=== PATIENT | female | born 1965 | race Caucasian/White ===

== ENCOUNTER 2016-04-16 12:37 | Emergency (ER) | payer MEDICAID ==
[~2016-04-16] VITALS: Ht 165.1 cm; Wt 78.1 kg
[2016-04-16 12:51] VITALS: BP 102/72
== END 2016-04-16 21:30 | disposition left against medical advice (07) ==
LOC: ER 12:42
DX: R10.9 Unspecified abdominal pain (principal); Z53.21 Procedure and treatment not carried out due to patient leaving prior to being seen by health care provider

== ENCOUNTER 2016-04-18 09:20 | Inpatient (IN) | payer MEDICAID ==
[~2016-04-18] VITALS: Ht 165.1 cm; Wt 4.0 kg
[2016-04-18 10:33] LABS: Basophils # (auto) 0 uL; Basophils % (auto) 0.7 % (0.0-2.0); Eosinophils # (auto) 0 uL; Eosinophils % (auto) 1.3 % (0.0-7.0); Hematocrit 35.6 % (36.0-46.0); Hemoglobin 11.6 g/dL (12.2-16.2); Lymphocytes # (auto) 1.1 uL; Lymphocytes % (auto) 31.9 % (10.0-50.0); Mean Corpuscular Hemoglobin 27.6 pg (28.0-32.0); Mean Corpuscular Hgb Conc. 32.5 g/dL (32.0-36.0); Mean Corpuscular Volume 84.8 fL (80.0-100.0); Mean Platelet Volume 6.4 fL (7.4-10.4); Monocytes # (auto) 0.3 uL; Monocytes % (auto) 9.7 % (0.0-12.0); Neutrophils % (auto) 56.4 % (37.0-80.0); Platelet Count (auto) 234 10^3/uL (140-450); Red Cell Distribution Width 18.9 % (11.6-16.0); White Blood Cell 3.6 10^3/uL (4.4-10.8)
[2016-04-18 10:51] LABS: Albumin 2.8 g/dL (3.4-5.0); BUN/Creatinine Ratio 23.9; Bilirubin, Total 1.1 mg/dL (0.2-1.0); Calcium 9.1 mg/dL (8.5-10.1); Magnesium 2.2 mg/dL (1.6-2.6); Potassium 4.1 mmol/L (3.5-5.1); Total Protein 9.2 g/dL (6.4-8.2)
[2016-04-18] MEDS ORDERED: HYDROcodone-ACET 10/325MG TAB ONE (11:06)
[2016-04-18] MEDS ORDERED: THIAMINE HCL 100 MG/ML 2ML VIAL IV ONE (11:30)
[2016-04-18] MEDS ORDERED: MORPHINE SULFATE 4 MG/ML SYRG IV PRN (11:30)
[2016-04-18] MEDS ORDERED: PROMETHAZINE HCL 25 MG/ML 1ML IV PRN (11:30)
[2016-04-18] MEDS ORDERED: MORPHINE SULF INJ 2 MG/ML SYRINGE 1ML IV PRN (11:30)
[2016-04-18] MEDS ORDERED: ALBUTEROL SULF 2.5 MG/0.5ML(0.5%) NEB SOLN NEB PRN (11:30)
[2016-04-18] MEDS ORDERED: TEMAZEPAM 15 MG CAP PO PRN (11:30)
[2016-04-18] MEDS ORDERED: NITROGLYCERIN 0.4 MG SL TAB SL PRN (11:30)
[2016-04-18] MEDS: FAMOTIDINE 20 MG TAB PO SCH ×2 (11:45→22:42)
[2016-04-18 11:52] LABS: Amylase 73 U/L (25-115)
[2016-04-18 13:15] LABS: INR 1.1 (0.9-1.15); Prothrombin Time 11.3 sec (9.37-12.3)
[2016-04-18] MEDS: ALBUTEROL SULF 2.5 MG/0.5ML(0.5%) NEB SOLN NEB SCH ×2 (13:50→18:00)
[2016-04-18] MEDS ORDERED: ALBUMIN 25% 100 ML IV ONE ×4 (14:43→16:15)
[2016-04-18] MEDS: LORazepam 0.5 MG TAB PO PRN (16:26)
[2016-04-18 16:59] VITALS: BP 93/62
[2016-04-18 22:00] VITALS: BP 89/66
[2016-04-18 22:32] VITALS: BP 93/62
[2016-04-18] MEDS: MORPHINE SULF INJ 2 MG/ML SYRINGE 1ML IV PRN (22:47)
[2016-04-19] MEDS: ALBUTEROL SULF 2.5 MG/0.5ML(0.5%) NEB SOLN NEB SCH ×6 (00:02→23:10)
[2016-04-19] MEDS: LORazepam 0.5 MG TAB PO PRN (03:16)
[2016-04-19 04:30] VITALS: BP 79/56
[2016-04-19 06:16] LABS: Basophils # (auto) 0 uL; Basophils % (auto) 0.5 % (0.0-2.0); Eosinophils # (auto) 0.1 uL; Eosinophils % (auto) 1.7 % (0.0-7.0); Hematocrit 34.3 % (36.0-46.0); Lymphocytes # (auto) 1.3 uL; Lymphocytes % (auto) 30.5 % (10.0-50.0); Mean Corpuscular Hemoglobin 27.5 pg (28.0-32.0); Mean Corpuscular Volume 85.8 fL (80.0-100.0); Mean Platelet Volume 6.4 fL (7.4-10.4); Monocytes # (auto) 0.4 uL; Monocytes % (auto) 9.7 % (0.0-12.0); Neutrophils # (auto) 2.4 uL; Neutrophils % (auto) 57.6 % (37.0-80.0); Platelet Count (auto) 214 10^3/uL (140-450); White Blood Cell 4.1 10^3/uL (4.4-10.8)
[2016-04-19 06:39] LABS: Albumin 2.7 g/dL (3.4-5.0); BUN/Creatinine Ratio 22.9; Bilirubin, Total 1.1 mg/dL (0.2-1.0); Calcium 8.5 mg/dL (8.5-10.1); Potassium 4.1 mmol/L (3.5-5.1); Total Protein 7.3 g/dL (6.4-8.2)
[2016-04-19 09:10] VITALS: BP 90/54
[2016-04-19] MEDS: THIAMINE HCL 100 MG/ML 2ML VIAL IV SCH (10:11)
[2016-04-19] MEDS: FAMOTIDINE 20 MG TAB PO SCH ×2 (10:11→21:49)
[2016-04-19] MEDS: MORPHINE SULF INJ 2 MG/ML SYRINGE 1ML IV PRN (12:56)
[2016-04-19 13:10] VITALS: BP 83/49
[2016-04-19 16:50] VITALS: BP 83/56
[2016-04-19 21:27] VITALS: BP 92/58
[2016-04-19] MEDS: ALBUMIN 25% 100 ML IV SCH (21:46)
[2016-04-19] MEDS ORDERED: ZOLPIDEM TARTRATE 5 MG TAB PO ONE (22:00)
[2016-04-20 05:27] VITALS: BP 86/59
[2016-04-20] MEDS: ALBUMIN 25% 100 ML IV SCH ×2 (05:44→14:32)
[2016-04-20] MEDS: ALBUTEROL SULF 2.5 MG/0.5ML(0.5%) NEB SOLN NEB SCH ×2 (06:47→11:45)
[2016-04-20] MEDS: MORPHINE SULF INJ 2 MG/ML SYRINGE 1ML IV PRN ×3 (06:49→17:31)
[2016-04-20 08:20] VITALS: BP 89/58
[2016-04-20] MEDS: THIAMINE HCL 100 MG/ML 2ML VIAL IV SCH (11:51)
[2016-04-20] MEDS: FAMOTIDINE 20 MG TAB PO SCH (11:51)
[2016-04-20 13:00] VITALS: BP 86/59
[2016-04-20 17:40] VITALS: BP 90/63
[2016-04-20] MEDS ORDERED: TEMAZEPAM 15 MG CAP PO PRN (22:00)
== END 2016-04-20 18:50 | disposition home or self-care (01) | DRG 280 ==
LOC: ER 09:21 → TELE 09:22 → TELE-E-ADS 12:33 → TELE-EAST 14:41
PROVIDERS: ADMIT Internal Medicine; ATTEND Internal Medicine
PROC: 0W9G3ZZ Drainage of Peritoneal Cavity, Percutaneous Approach (ICD-10-PCS; principal; 2016-04-18)
DX: K70.31 Alcoholic cirrhosis of liver with ascites (principal); J44.9 Chronic obstructive pulmonary disease, unspecified; F17.210 Nicotine dependence, cigarettes, uncomplicated; N18.9 Chronic kidney disease, unspecified; Z88.0 Allergy status to penicillin; Z95.2 Presence of prosthetic heart valve
CPT/HCPCS: 36415; 71020; 76700; 76942; 80053; 82140; 82150; 83690; 83735; 84484; 85025; 85049; 85610; 85730; 86141; 87081; 93005; 94640; 94761; 96365; 96368; 96375

== ENCOUNTER 2016-06-10 14:17 | Inpatient (IN) | payer MEDICAID ==
[~2016-06-10] VITALS: Ht 162.6 cm; Wt 88.3 kg
[2016-06-10 14:56] LABS: Basophils # (auto) 0 uL; Basophils % (auto) 0.6 % (0.0-2.0); DEFINITIVE VIEW TRANSMISSION; Eosinophils # (auto) 0 uL; Eosinophils % (auto) 0.9 % (0.0-7.0); Hematocrit 34.4 % (36.0-46.0); Hemoglobin 11.3 g/dL (12.2-16.2); Lymphocytes % (auto) 20.4 % (10.0-50.0); Mean Corpuscular Hemoglobin 27.5 pg (28.0-32.0); Mean Corpuscular Hgb Conc. 32.7 g/dL (32.0-36.0); Mean Platelet Volume 6.3 fL (7.4-10.4); Monocytes # (auto) 0.4 uL; Monocytes % (auto) 7.7 % (0.0-12.0); Neutrophils # (auto) 3.5 uL; Neutrophils % (auto) 70.4 % (37.0-80.0); Platelet Count (auto) 311 10^3/uL (140-450); Red Cell Distribution Width 19.2 % (11.6-16.0)
[2016-06-10 15:13] LABS: Anion Gap 10 (5-15); Aspartate Aminotransferase 34 U/L (15-37); BUN/Creatinine Ratio 19.4; Blood Urea Nitrogen 35 mg/dL (7-18); Calcium 9.2 mg/dL (8.5-10.1); Carbon Dioxide 22 mmol/L (21-32); Chloride 99 mmol/L (98-107); GFR African American 38 mL/min; GFR Non-African American 31 mL/min; Glucose 96 mg/dL (74-106); Magnesium 2.6 mg/dL (1.6-2.6); Potassium 4.2 mmol/L (3.5-5.1); Sodium 131 mmol/L (136-145)
[2016-06-10 15:18] LABS: Alkaline Phosphatase 137 U/L (45-117); Bilirubin, Total 1.2 mg/dL (0.2-1.0); Total Protein 10.1 g/dL (6.4-8.2)
[2016-06-10] MEDS ORDERED: methylPREDNISolone SOD SUCC 125 MG/2 ML VL IV ONE (16:45)
[2016-06-10] MEDS ORDERED: FUROSEMIDE 40 MG/4 ML VIAL IV ONE (16:45)
[2016-06-10] MEDS ORDERED: IPRATROPIUM BROM 0.5 MG/2.5ML INH SOL NEB ONE (16:45)
[2016-06-10] MEDS ORDERED: ALBUTEROL SULF 2.5 MG/0.5ML(0.5%) NEB SOLN NEB ONE (16:45)
[2016-06-10] MEDS ORDERED: SODIUM CHLORIDE 0.9% 1,000 ML IV SCH (17:01)
[2016-06-10] MEDS ORDERED: TEMAZEPAM 15 MG CAP PO PRN (17:15)
[2016-06-10] MEDS ORDERED: PANTOPRAZOLE 40 MG TAB PO ONE (17:15)
[2016-06-10] MEDS ORDERED: LORazepam 0.5 MG TAB PO PRN (17:15)
[2016-06-10] MEDS ORDERED: ACETAMINOPHEN 500 MG TAB PO PRN (17:15)
[2016-06-10] MEDS ORDERED: NITROGLYCERIN 0.4 MG SL TAB SL PRN (17:15)
[2016-06-10] MEDS ORDERED: MORPHINE SULF INJ 2 MG/ML SYRINGE 1ML IV PRN (17:15)
[2016-06-10] MEDS ORDERED: OSELTAMIVIR 30 MG CAP PO ONE (17:15)
[2016-06-10] MEDS ORDERED: AZITHROMYCIN 500MG/D5W 250ML 250 ML IV ONE (17:15)
[2016-06-10] MEDS ORDERED: ALBUTEROL SULF 2.5 MG/0.5ML(0.5%) NEB SOLN NEB PRN (17:15)
[2016-06-10] MEDS ORDERED: PROMETHAZINE HCL 25 MG/ML 1ML IV PRN (17:15)
[2016-06-10] MEDS ORDERED: ENOXAPARIN SOD 40 MG/0.4 ML SYRINGE SC ONE (17:15)
[2016-06-10] MEDS ORDERED: LACTULOSE 20Gm/30ML SOLN PO PRN (17:15)
[2016-06-10 17:33] LABS: INR 1.11 (0.9-1.15); Prothrombin Time 11.4 sec (9.37-12.3)
[2016-06-10] MEDS: IPRATROPIUM BROM 0.5 MG/2.5ML INH SOL NEB SCH (18:00)
[2016-06-10] MEDS: ALBUTEROL SULF 2.5 MG/0.5ML(0.5%) NEB SOLN NEB SCH (18:00)
[2016-06-10] MEDS ORDERED: FUROSEMIDE 40 MG/4 ML VIAL IV SCH (18:35)
[2016-06-10] MEDS: SPIRONOLACTONE 25 MG TAB PO SCH (18:35)
[2016-06-10] MEDS: methylPREDNISolone SOD SUCC 40 MG/ML VL IV SCH (18:51)
[2016-06-10] MEDS: OSELTAMIVIR 30 MG CAP PO SCH (18:52)
[2016-06-10] MEDS ORDERED: SPIR50TA23 PO (19:30)
[2016-06-10] MEDS ORDERED: PROP60CA8 PO (19:33)
[2016-06-10] MEDS ORDERED: FURO40TA4 PO (19:34)
[2016-06-10] MEDS ORDERED: FOLITAB14 PO (19:38)
[2016-06-10] MEDS ORDERED: BECL0.07 INH (19:38)
[2016-06-10] MEDS ORDERED: [UNRECOGNIZED DRUG - CODE] PO (19:38)
[2016-06-10 20:20] VITALS: BP 98/72
[2016-06-10 21:00] VITALS: BP 88/63
[2016-06-10 22:00] VITALS: BP 98/72
[2016-06-10] MEDS ORDERED: OSELTAMIVIR 75 MG CAP PO SCH (22:00)
[2016-06-10] MEDS: METOPROLOL TARTRATE 25 MG TAB PO SCH (22:30)
[2016-06-11] MEDS: methylPREDNISolone SOD SUCC 40 MG/ML VL IV SCH ×3 (00:06→16:50)
[2016-06-11 05:00] VITALS: BP 94/63
[2016-06-11] MEDS: OSELTAMIVIR 30 MG CAP PO SCH (05:48)
[2016-06-11] MEDS: FUROSEMIDE 40 MG/4 ML VIAL IV SCH ×2 (05:51→16:51)
[2016-06-11] MEDS: SPIRONOLACTONE 25 MG TAB PO SCH ×2 (05:59→16:51)
[2016-06-11 06:03] LABS: Basophils # (auto) 0 uL; Basophils % (auto) 0.3 % (0.0-2.0); DEFINITIVE VIEW TRANSMISSION; Eosinophils # (auto) 0 uL; Hematocrit 32.5 % (36.0-46.0); Hemoglobin 10.6 g/dL (12.2-16.2); Lymphocytes # (auto) 0.5 uL; Lymphocytes % (auto) 10.6 % (10.0-50.0); Mean Corpuscular Hemoglobin 27.2 pg (28.0-32.0); Mean Corpuscular Hgb Conc. 32.8 g/dL (32.0-36.0); Mean Corpuscular Volume 82.9 fL (80.0-100.0); Mean Platelet Volume 6.7 fL (7.4-10.4); Monocytes # (auto) 0.1 uL; Monocytes % (auto) 1.7 % (0.0-12.0); Neutrophils # (auto) 3.7 uL; Neutrophils % (auto) 87.4 % (37.0-80.0); Platelet Count (auto) 249 10^3/uL (140-450); Red Cell Distribution Width 19.2 % (11.6-16.0); White Blood Cell 4.3 10^3/uL (4.4-10.8)
[2016-06-11 06:26] LABS: Potassium 4.3 mmol/L (3.5-5.1)
[2016-06-11 06:33] LABS: Albumin 2.7 g/dL (3.4-5.0); BUN/Creatinine Ratio 22.2; Bilirubin, Total 0.9 mg/dL (0.2-1.0); Calcium 8.7 mg/dL (8.5-10.1); Total Protein 9.3 g/dL (6.4-8.2)
[2016-06-11] MEDS: IPRATROPIUM BROM 0.5 MG/2.5ML INH SOL NEB SCH ×4 (06:56→19:30)
[2016-06-11] MEDS: ALBUTEROL SULF 2.5 MG/0.5ML(0.5%) NEB SOLN NEB SCH ×4 (06:56→19:30)
[2016-06-11 07:15] LABS: B-Type Natriuretic Peptide 235.21 pg/mL (0-100)
[2016-06-11 07:30] VITALS: BP 98/72
[2016-06-11 09:08] VITALS: BP 111/70
[2016-06-11 09:14] LABS: Urine Bilirubin Negative (Negative); Urine Blood TRACE /uL (Negative); Urine Color Yellow (Yellow); Urine Ketone Negative (Negative); Urine Nitrite Negative (Negative); Urine RBC 1 /hpf (0 - 4); Urine Squamous Epithelial Cell FEW /hpf (<5); Urine Urobilinogen Normal (Negative)
[2016-06-11 09:15] LABS: Urine Glucose 2+ mg/dL (Normal)
[2016-06-11] MEDS: PANTOPRAZOLE 40 MG TAB PO SCH (09:31)
[2016-06-11] MEDS: ENOXAPARIN SOD 40 MG/0.4 ML SYRINGE SC SCH (09:32)
[2016-06-11] MEDS: MORPHINE SULF INJ 2 MG/ML SYRINGE 1ML IV PRN ×2 (09:32→21:18)
[2016-06-11] MEDS: METOPROLOL TARTRATE 25 MG TAB PO SCH ×2 (09:34→21:28)
[2016-06-11] MEDS: NICOTINE 21MG/24 HR TOPICAL PATCH TD SCH (10:00)
[2016-06-11] MEDS: AZITHROMYCIN 500MG/D5W 250ML 250 ML IV SCH (10:48)
[2016-06-11 13:00] VITALS: BP 115/76
[2016-06-11 17:16] VITALS: BP 115/80
[2016-06-11 22:00] VITALS: BP 118/82
[2016-06-12] VITALS (7 sets, daily range): BP systolic 86–121; BP diastolic 59–87
[2016-06-12] MEDS: ALBUTEROL SULF 2.5 MG/0.5ML(0.5%) NEB SOLN NEB SCH ×4 (00:19→18:49)
[2016-06-12] MEDS: IPRATROPIUM BROM 0.5 MG/2.5ML INH SOL NEB SCH ×4 (00:19→18:49)
[2016-06-12] MEDS: FUROSEMIDE 40 MG/4 ML VIAL IV SCH ×2 (05:12→17:58)
[2016-06-12] MEDS: SPIRONOLACTONE 25 MG TAB PO SCH ×2 (05:31→17:58)
[2016-06-12] MEDS: methylPREDNISolone SOD SUCC 40 MG/ML VL IV SCH (05:31)
[2016-06-12 06:26] LABS: Basophils # (auto) 0 uL; DEFINITIVE VIEW TRANSMISSION; Eosinophils # (auto) 0 uL; Hematocrit 33.5 % (36.0-46.0); Hemoglobin 10.9 g/dL (12.2-16.2); Lymphocytes # (auto) 0.6 uL; Lymphocytes % (auto) 5.2 % (10.0-50.0); Mean Corpuscular Hemoglobin 27.5 pg (28.0-32.0); Mean Corpuscular Hgb Conc. 32.6 g/dL (32.0-36.0); Mean Corpuscular Volume 84.2 fL (80.0-100.0); Mean Platelet Volume 6.7 fL (7.4-10.4); Monocytes # (auto) 0.5 uL; Monocytes % (auto) 4.1 % (0.0-12.0); Neutrophils % (auto) 90.7 % (37.0-80.0); Platelet Count (auto) 262 10^3/uL (140-450); Red Cell Distribution Width 19.5 % (11.6-16.0); White Blood Cell 12.1 10^3/uL (4.4-10.8)
[2016-06-12 06:40] LABS: Albumin 3.1 g/dL (3.4-5.0); BUN/Creatinine Ratio 24.1; Calcium 8.9 mg/dL (8.5-10.1); Potassium 4.6 mmol/L (3.5-5.1)
[2016-06-12 06:43] LABS: Bilirubin, Total 0.6 mg/dL (0.2-1.0); Total Protein 9.8 g/dL (6.4-8.2)
[2016-06-12] MEDS: MORPHINE SULF INJ 2 MG/ML SYRINGE 1ML IV PRN (09:05)
[2016-06-12] MEDS: ENOXAPARIN SOD 40 MG/0.4 ML SYRINGE SC SCH (09:07)
[2016-06-12] MEDS: PANTOPRAZOLE 40 MG TAB PO SCH (09:08)
[2016-06-12] MEDS: METOPROLOL TARTRATE 25 MG TAB PO SCH ×2 (09:10→22:00)
[2016-06-12] MEDS: NICOTINE 21MG/24 HR TOPICAL PATCH TD SCH (09:12)
[2016-06-12] MEDS: AZITHROMYCIN 500MG/D5W 250ML 250 ML IV SCH (11:40)
[2016-06-12] MEDS: HYDROcodone-ACET 5/325MG TAB PO PRN ×2 (12:10→17:59)
[2016-06-13] MEDS: HYDROcodone-ACET 5/325MG TAB PO PRN (00:18)
[2016-06-13 05:00] VITALS: BP 111/77
[2016-06-13] MEDS: FUROSEMIDE 40 MG/4 ML VIAL IV SCH (05:57)
[2016-06-13] MEDS: SPIRONOLACTONE 25 MG TAB PO SCH (05:57)
[2016-06-13 06:38] LABS: Basophils # (auto) 0 uL; Basophils % (auto) 0.1 % (0.0-2.0); DEFINITIVE VIEW TRANSMISSION; Eosinophils # (auto) 0 uL; Eosinophils % (auto) 0.1 % (0.0-7.0); Hematocrit 33.1 % (36.0-46.0); Hemoglobin 10.9 g/dL (12.2-16.2); Lymphocytes % (auto) 10.3 % (10.0-50.0); Mean Corpuscular Hemoglobin 27.6 pg (28.0-32.0); Mean Corpuscular Hgb Conc. 33.1 g/dL (32.0-36.0); Mean Corpuscular Volume 83.4 fL (80.0-100.0); Mean Platelet Volume 6.8 fL (7.4-10.4); Monocytes # (auto) 0.7 uL; Monocytes % (auto) 7.1 % (0.0-12.0); Neutrophils # (auto) 8.4 uL; Neutrophils % (auto) 82.4 % (37.0-80.0); Platelet Count (auto) 284 10^3/uL (140-450); Red Cell Distribution Width 19.8 % (11.6-16.0); White Blood Cell 10.2 10^3/uL (4.4-10.8)
[2016-06-13] MEDS: IPRATROPIUM BROM 0.5 MG/2.5ML INH SOL NEB SCH ×3 (07:00→11:31)
[2016-06-13] MEDS: ALBUTEROL SULF 2.5 MG/0.5ML(0.5%) NEB SOLN NEB SCH ×3 (07:00→11:31)
[2016-06-13 07:20] LABS: Potassium 4.7 mmol/L (3.5-5.1)
[2016-06-13 07:31] LABS: Albumin 3.1 g/dL (3.4-5.0); BUN/Creatinine Ratio 28.3; Bilirubin, Total 0.5 mg/dL (0.2-1.0); Total Protein 9.5 g/dL (6.4-8.2)
[2016-06-13 07:35] VITALS: BP 100/73
[2016-06-13 08:00] VITALS: BP 111/77
[2016-06-13] MEDS: MORPHINE SULF INJ 2 MG/ML SYRINGE 1ML IV PRN ×2 (09:24→17:04)
[2016-06-13] MEDS: PANTOPRAZOLE 40 MG TAB PO SCH (09:26)
[2016-06-13] MEDS: ENOXAPARIN SOD 40 MG/0.4 ML SYRINGE SC SCH (09:26)
[2016-06-13] MEDS: METOPROLOL TARTRATE 25 MG TAB PO SCH (09:26)
[2016-06-13] MEDS: NICOTINE 21MG/24 HR TOPICAL PATCH TD SCH (09:30)
[2016-06-13] MEDS ORDERED: DOXYCYCLINE 100 MG TAB/CAP PO SCH (10:00)
[2016-06-13 11:56] VITALS: BP 94/64
[2016-06-13] MEDS ORDERED: ALBUMIN 25% 50 ML IV ONE (15:54)
[2016-06-13] MEDS ORDERED: ALBUMIN 25% 200 ML IV ONE (15:55)
[2016-06-13 18:01] VITALS: BP 100/73
== END 2016-06-13 18:25 | disposition home or self-care (01) | DRG 280 ==
LOC: ER 14:18 → TELE 14:19 → TELE-CENTR 20:20
PROVIDERS: ADMIT Internal Medicine; ATTEND Internal Medicine
PROC: 0W9G30Z Drainage of Peritoneal Cavity with Drainage Device, Percutaneous Approach (ICD-10-PCS; principal; 2016-06-13)
DX: K70.31 Alcoholic cirrhosis of liver with ascites (principal); K72.90 Hepatic failure, unspecified without coma; N18.4 Chronic kidney disease, stage 4 (severe); J44.1 Chronic obstructive pulmonary disease with (acute) exacerbation; N18.3 Chronic kidney disease, stage 3 (moderate); I48.92 Unspecified atrial flutter; K43.9 Ventral hernia without obstruction or gangrene; F17.210 Nicotine dependence, cigarettes, uncomplicated; Z95.0 Presence of cardiac pacemaker; Z95.2 Presence of prosthetic heart valve; Z80.9 Family history of malignant neoplasm, unspecified; Z88.0 Allergy status to penicillin
CPT/HCPCS: 36415; 71020; 76705; 76942; 80053; 80061; 81001; 82550; 83735; 83880; 84443; 84484; 85025; 85610; 85652; 85730; 86141; 87070; 87205; 87400; 93005; 93306; 94640; 96365; 96372; 96375; 99291; G9035